=== PATIENT | male | born 1990 | race Caucasian/White ===

== ENCOUNTER → 2016-10-30 | Outpatient (CLI) | payer SELFPAY ==
--- NOTE | 2016-10-30 14:34 | Diagnostic Imaging Report ---
Scrotal ultrasound. INDICATION: Right scrotal pain. FINDINGS: The right testicle is 4.5 x 2.1 x 2.8 cm. The left testicle is 4.3 x 2 x 3 cm. There is homogeneous echotexture of the testicles with no focal mass seen. There is color flow demonstrated and appears symmetric with arterial waveforms seen in the right testicle and in the left testicle as well. No hydrocele. IMPRESSION: Unremarkable exam. Dictated by: Dictated on workstation # [id number]
== END ==
LOC: RAD 11:52
PROVIDERS: ATTEND Urology
DX: N50.82 Scrotal pain (principal)
CPT/HCPCS: 76870